=== PATIENT | female | born 1970 | race Caucasian/White ===

== ENCOUNTER → 2017-07-11 | Day surgery (SDC) | payer OTHER ==
[2017-07-07 12:29] VITALS: Ht 162.6 cm; Wt 100.5 kg
[~2017-07-11] VITALS: Ht 162.6 cm; Wt 100.5 kg
[~2017-07-11] MED LIST: 500ML BSSPLUS 0.5ML EPI1:1000 IRRIG ONE; ACET-1311 PO; ACETAMINOPHEN 325 MG TAB PO PRN; ASPI81TA28 PO; ATOR-26 PO; ATROPINE SULFATE 0.1 MG/ML 5ML SYR IV PRN; BSS FLUSH ONE; BUPIVACAINE HCL 0.75% 10 ML AMP/VIAL ONE; CEFAZOLIN SOD 1 GM VIAL ONE; CHOL2000 PO; CLOP1TAB15 PO; DEXAMETHASONE SOD INJ 4 MG/ML VIAL ONE; EPP3/2 IM; EpHEDrine SULFATE INJ 50 MG/ML AMP IV PRN; EpINEphrine INJ 1MG/ML AMP 1 MG/ML AMP ONE; FENTANYL CITRATE INJ 50 MCG/1 ML 2 ML VIAL IV PRN; FENTANYL CITRATE INJ 50 MCG/1 ML 2 ML VIAL ONE; FLUO20CA35 PO; FLUT50SP45; FRS/40 PO; HYALURONIDASE HUMAN 150 UNIT/ML INJ ONE; INDOCYANINE GREEN 25 MG/10 ML ONE; INSDGI SC; INSULIN HUMAN REGULAR PER UNIT 6 UNITS in SYRINGE 0 ML IV STA; IPRA1AER2 INH; ISOS60TA25 PO; LABETALOL HCL IV 5 MG/ML 20ML ONE; LACTATED RINGER'S 1000ML 500 ML IV SCH; LIDOCAINE HCL 2% 2 ML VIAL (20MG/ML) ONE; LIDOCAINE MPF 4% INJ ONE; LISI20TA3 PO; METO50TA16 PO; MIDAZOLAM HCL 1 MG/ML 2ML VIAL ONE; NEOMYCIN/POLYMYX/DEXAMETH OP OINT PER APP CHARGE ONE; NTRGSL/4 UT; NVLGI/PEN SQ; NovoLIN-R INSULIN PER UNIT CHARGE ONE; OCUCOAT 1 ML SOLN IO ONE; ONDA4TAB46 PO; ONDANSETRON INJ 2 MG/ML 2 ML VIAL IV PRN; PHENYLEPHRINE HCL 10% OP SOLN PER DROP CHARGE ONE; POLY335019 PO; POVIDONE-IODINE OP SOLN (SURGERY CNTR CHARGING ONLY) ONE; PROPARACAINE 0.5% OP SOLN PER DROP CHARGE OPL SCH; PROPOFOL IV EMULSION 10 MG/ML 20 ML VIAL ONE; RANI150T3 PO; TIMOLOL MALEATE 0.5% OP SOLN PER DROP CHARGE ONE; VANCOMYCIN HCL 1000MG/20ML VIAL ONE
--- NOTE | 2017-07-11 07:50 | History & Physical Bridge - [place] ---
H&P Re-Evaluation Bridge Note: Pt has diabetic retinopathy left eye and is having vitrectomy left eye. I have examined the patient, reviewed the History & Physical and in the interval since the performance of the History & Physical I have noted the following changes of clinical significance: No changes noted
[2017-07-11] MEDS: PHENYLEPHRINE HCL 2.5% OP SOLN PER DROP CHARGE OPL SCH ×2 (07:59→08:05)
[2017-07-11] MEDS: TROPICAMIDE 1% OP SOLN PER DROP CHARGE OPL SCH ×2 (08:00→08:05)
[2017-07-11 08:37] LABS: CALCIUM 8.6 mg/dl (8.5-10.1); CREATININE 0.93 mg/dl (0.60-1.20); POTASSIUM 4.2 mmol/L (3.5-5.1)
[2017-07-11] MEDS: ATROPINE SULFATE 1% OP SOLN 2 ML BTL ONE ×2 (10:14→10:16)
[2017-07-11] MEDS: ATROPINE SULFATE 1% OP OINT PER APPLICATION CHARGE ONE ×2 (10:14→10:15)
--- NOTE | 2017-07-11 10:17 | [facility] Post Operative Brief Note ---
Immediate Operative Summary Operative Date Jul 11, 2017. Pre-Operative Diagnosis Left Eye Diabetic Retinopathy Post-Operative Diagnosis Same Procedure(s) Performed Left Eye 23 Gauge Vitrectomy with Laser Surgeon Dr. Bentley Senior Research Project Manager Surgeon(s) None Estimated Blood Loss 0 Findings Consistent with Post-Op Diagnosis Specimens None Anesthesia Type MAC
--- NOTE | 2017-07-11 10:18 | Discharge Instructions-SurgCtr ---
Discharge Instructions Date of Service Jul 11, 2017. Visit Reason for Visit: Left Eye Diabetic Retinopathy Discharge Discharge Diagnosis / Problem: same Discharge Goals Goal(s): Improve function Activity Recommendations Activity Limitations: per Instructions/Follow-up section Anesthesia . Post Anesthesia Instructions: If you have had General Anesthesia or IV Sedation: * Do not drive today. * Resume driving when surgeon permits. * Do not make important decisions or sign legal documents today. * Call surgeon for: 1. Temperature elevations greater than 101 degrees F. 2. Uncontrollable pain. 3. Excessive bleeding. 4. Persistent nausea and vomiting. 5. Medication intolerance (nausea, vomiting or rash). * For nausea and vomiting use only clear liquids such as: tea, soda, bouillon until nausea subsides, then gradually increase diet as tolerated. * If you have any concerns or questions, call your surgeon's office. If physician is unavailable and it is an emergency, call 911 or go to the nearest emergency room. . Instructions / Follow-Up Instructions / Follow-Up * May take Tylenol if needed for discomfort. * Do NOT remove eye shield. * NO straining, heavy lifting (>15 pounds) or bending below waist. * Avoid getting water or soap directly into operative eye. * Do NOT rub eye. If you experience increasing eye pain not relieved by medication, please contact us immediately at [phone]. If you are unable to reach someone at the above number, call [phone] and ask to speak with the EYE DOCTOR COMMUNITY HEALTH COUNSELOR. Inform them that you are a Dr. Bentley patient who had recent surgery. Diet Recommendations Home Diet: resume previous diet Procedures Procedures Performed: Left Eye 23 Gauge Vitrectomy with Laser Pending Studies Studies pending at discharge: no Medical Emergencies . Who to Call and When: Medical Emergencies: If at any time you feel your situation is an emergency, please call 911 immediately. . Non-Emergent Contact Non-Emergency issues call your: Maritime Engineer . . "Provider Documentation" section prepared by Demetrio Bentley. .
[2017-07-11 10:23] VITALS: TEMP 36.5
--- NOTE | 2017-07-11 10:24 | [facility] Operative Report ---
Operative Report Date of Service Jul 11, 2017. Operative Report PREOPERATIVE DIAGNOSIS: Diabetic retinopathy with vitreous hemorrhage, epiretinal membrane and tractional retinal detachment, left eye. POSTOPERATIVE DIAGNOSIS: same. PROCEDURE: 1. Pars plana vitrectomy, 23 gauge. 2. Membrane peeling. 3. Endolaser. All to the left eye. CPT CODE: 57777 SURGEON: Demetrio Bentley D.O. COMPLICATIONS: None. ESTIMATED BLOOD LOSS: None. SPECIMENS: None. ANESTHESIA: Retrobulbar block and MAC INDICATIONS FOR PROCEDURE: Surgery is indicated to decrease risk of vision loss and potentially improve vision. CONSENT: The risks, benefits and alternatives were discussed with the patient including but not limited to decreased visual acuity, failure to achieve desired results, loss of the eye, infection, pain, glaucoma, lens changes, retinal tears, retinal detachment, the need for more procedures, drooping of the eyelid, blindness, and double vision. The patient is aware of risks and consents to the surgery. Consent is signed and on the chart. OPERATION AND FINDINGS: The patient was brought to the operating room where the patient was identified by name, date, and medical record number. The surgical site was confirmed with the informed written consent. The patient was sedated by the anesthesiology team after which a 50:50 mixture of 2% lidocaine and 0.75% bupivacaine with hyaluronidase was administered in a standard retrobulbar fashion. A total of 4 ml was administered without difficulty. The patient was then prepped and draped in the usual sterile manner for retinal surgery. Lidocaine 4% was injected subTenon's superior nasally and inferior nasally for a total of 4ml due to the patient still having discomfort after the retrobulbar block. A wire lid speculum was placed and an Heath 23-gauge trocar cannula system was employed. The inferior temporal trocar cannula was first placed in an angled fashion 3.75mm posterior to the surgical limbus and the infusion cannula was inserted into this cannula after which the intravitreal position was verified prior to turning the infusion on. Two more trocar cannulas were then inserted in an angled fashion, one in the superior temporal, and one in the superior nasal quadrant both 3.75mm posterior to the surgical limbus. A light pipe and vitrector were then introduced into the eye and the BIOM wide angle viewing system was brought into place. Posterior inspection revealed partially regressed proliferative diabetic retinopathy with neovascularization tags superior and inferior to the temporal arcades. There was also noted well placed previous partial laser treatment. Standard core vitrectomy was performed and the tractional detachments along the superior and inferior arcades were segmented. The vitreous was insured to be totally detached from the posterior pole with the aid of the vitrector. the areas of regressed neovascularization were segmented with the vitrector. Endolaser was used to perform fill-in steward retinal photocoagulation. Next 0.05ml of indocyanine green was placed over the macular surface to stain the internal limiting membrane and reverse stain the overlying epiretinal membrane. This was washed from the eye after 20 seconds. At this point a flat contact lens was placed on the surface of the eye and a flex loop and ILM forceps were used to gently peel the internal limiting membrane and overlying epiretinal membrane off of the macular surface without difficulty. At this point scleral depression was performed for 360 degrees and no retinal tears or detachments were noted. The trocar cannulas were then removed and found to be water tight. The intraocular pressure was found to be within normal limits by palpation and subconjunctival injections of vancomycin and dexamethasone were administered inferiorly and superiorly. The wire lid speculum was removed. Maxitrol and Atropine ointments were applied to the surface of the eye. A light patch and shield were taped over the surface of the eye and the patient left the Operating Room in stable condition having tolerated the procedure well. DISPOSITION: The patient has an appointment the following morning in the Ophthalmology Clinic. The patient is to call immediately if there are any problems overnight. I attest to the content of the Intraoperative Record and any orders documented therein. Any exceptions are noted below.
[2017-07-11 11:00] VITALS: BP 153/75; PULSE 84; O2SAT 96
--- NOTE | 2017-07-11 11:14 | Anesthesia Progress Nt - [facility] ---
Anesthesia Post Op Note Date & Time Jul 11, 2017 at 11:04 Vital Signs Pain Intensity: 0 Vital Signs Past 12 Hours Date Time Temp Pulse Resp B/P (MAP) Pulse Ox O2 Delivery O2 Flow Rate FiO2 07/11/17 11:00 84 20 153/75 (101) 96 Room Air 07/11/17 10:23 36.5 78 20 154/88 (110) 98 Room Air 07/11/17 07:22 37.2 88 20 154/94 (114) 97 Room Air Notes Mental Status: alert / awake / arousable, participated in evaluation Nausea / Vomiting: adequately controlled Pain: adequately controlled Airway Patency, RR, SpO2: stable & adequate BP & HR: stable & adequate Hydration State: stable & adequate Anesthetic Complications: no major complications apparent Anesthetic Complications: Preoperatively, the patient's port was accessed by nursing due to a history of difficult IV access. The nurse was not able to draw blood from the port, but patient stated that this happens sometimes. On arrival to the OR, the patient experienced pain with injection of 40 mg of propofol. The tissue above the aport was tender, slightly firm and mildly blanched. Therefore, the aport need was removed. Speaking to the nurse who did both the placement and the removal, she did not believe the port itself was ever actually accessed. I placed a 22 G IV in the patient's foot for the case. At the end of case, the patient's chest tissue over the aport was no long tender, tissue was soft, and skin color was normal. Discussed with patient whether she wanted us to try to reaccess her port to place a heparin dwell in the slim possibility the port had been accessed prior to surgery and the needle had become dislodged, but patient refused. The patient was instructed to call us if the tissue became tender, red , or if there was any evidence of skin breakdown. The patient was also aware that she was given insulin prior to surgery and instructed to monitor her blood sugar for the rest of the day. (BG in PACU was 275 - down from 365 preop). Otherwise patient was ok for discharge.
== END | disposition home or self-care (01) ==
LOC: X.SURG 07:00
PROVIDERS: ATTEND Ophthalmology
DX: E11.319 Type 2 diabetes mellitus with unspecified diabetic retinopathy without macular edema (principal); K21.9 Gastro-esophageal reflux disease without esophagitis; J44.9 Chronic obstructive pulmonary disease, unspecified; G47.33 Obstructive sleep apnea (adult) (pediatric); I25.10 Atherosclerotic heart disease of native coronary artery without angina pectoris; Z86.73 Personal history of transient ischemic attack (TIA), and cerebral infarction without residual deficits; Z95.1 Presence of aortocoronary bypass graft; Z91.040 Latex allergy status; Z79.4 Long term (current) use of insulin; Z87.891 Personal history of nicotine dependence; Z88.0 Allergy status to penicillin; Z88.5 Allergy status to narcotic agent; Z80.3 Family history of malignant neoplasm of breast; Z82.49 Family history of ischemic heart disease and other diseases of the circulatory system

== ENCOUNTER → 2017-09-30 | Outpatient (CLI) | payer OTHER ==
[~2017-09-30] MED LIST changes: -500ML BSSPLUS 0.5ML EPI1:1000 IRRIG ONE; -ACETAMINOPHEN 325 MG TAB PO PRN; -ATROPINE SULFATE 0.1 MG/ML 5ML SYR IV PRN; -BSS FLUSH ONE; -BUPIVACAINE HCL 0.75% 10 ML AMP/VIAL ONE; -CEFAZOLIN SOD 1 GM VIAL ONE; -DEXAMETHASONE SOD INJ 4 MG/ML VIAL ONE; -EpHEDrine SULFATE INJ 50 MG/ML AMP IV PRN; -EpINEphrine INJ 1MG/ML AMP 1 MG/ML AMP ONE; -FENTANYL CITRATE INJ 50 MCG/1 ML 2 ML VIAL IV PRN; -FENTANYL CITRATE INJ 50 MCG/1 ML 2 ML VIAL ONE; -HYALURONIDASE HUMAN 150 UNIT/ML INJ ONE; -INDOCYANINE GREEN 25 MG/10 ML ONE; -INSULIN HUMAN REGULAR PER UNIT 6 UNITS in SYRINGE 0 ML IV STA; -LABETALOL HCL IV 5 MG/ML 20ML ONE; -LACTATED RINGER'S 1000ML 500 ML IV SCH; -LIDOCAINE HCL 2% 2 ML VIAL (20MG/ML) ONE; -LIDOCAINE MPF 4% INJ ONE; -MIDAZOLAM HCL 1 MG/ML 2ML VIAL ONE; -NEOMYCIN/POLYMYX/DEXAMETH OP OINT PER APP CHARGE ONE; -NovoLIN-R INSULIN PER UNIT CHARGE ONE; -OCUCOAT 1 ML SOLN IO ONE; -ONDANSETRON INJ 2 MG/ML 2 ML VIAL IV PRN; -PHENYLEPHRINE HCL 10% OP SOLN PER DROP CHARGE ONE; -POVIDONE-IODINE OP SOLN (SURGERY CNTR CHARGING ONLY) ONE; -PROPARACAINE 0.5% OP SOLN PER DROP CHARGE OPL SCH; -PROPOFOL IV EMULSION 10 MG/ML 20 ML VIAL ONE; -TIMOLOL MALEATE 0.5% OP SOLN PER DROP CHARGE ONE; -VANCOMYCIN HCL 1000MG/20ML VIAL ONE
[2017-09-30 17:41] LABS: BASO % 0.9 %; BASO ABS # 0.04 K/uL (0-0.2); EOS % 3.2 %; EOS ABS # 0.15 K/uL (0-0.5); HEMATOCRIT 36.1 % (37-47); HEMOGLOBIN 11.9 g/dL (12.0-16.0); IG# 0.01 K/uL (0.00-0.02); LYMPH % 44.9 %; LYMPH ABS # 2.08 K/uL (1.2-3.4); MEAN CELL VOLUME 86.8 fL (80-100); MEAN CORPUSCULAR HEMOGLOBIN 28.6 pg (25-34); MEAN PLATELET VOLUME 11.6 fL (7.4-10.4); MONO % 6.3 %; MONO ABS # 0.29 K/uL (0.11-0.59); NEUT % 44.5 %; NEUT ABS # 2.06 K/uL (1.4-6.5); PLATELET COUNT 256 K/uL (130-400); RED CELL DISTRIBUTION WIDTH CV 13.3 % (11.5-14.5); WHITE BLOOD COUNT 4.63 K/uL (4.8-10.8)
[2017-09-30 18:17] LABS: ALKALINE PHOSPHATASE 146 U/L (45-117); ALT/SGPT 38 U/L (12-78); AST/SGOT 24 U/L (15-37); BLOOD UREA NITROGEN 27 mg/dl (7-18); CALCIUM 8.8 mg/dl (8.5-10.1); CARBON DIOXIDE 24 mmol/L (21-32); CHOLESTEROL 141 mg/dl (0-200); CREATININE 0.98 mg/dl (0.60-1.20); GLUCOSE 132 mg/dl (70-99); LDL CHOLESTEROL CALCULATED 43 mg/dl; POTASSIUM 4.3 mmol/L (3.5-5.1); SODIUM 140 mmol/L (136-145); TOTAL PROTEIN 7.3 gm/dl (6.4-8.2)
[2017-09-30 18:30] LABS: CREATININE RANDOM URINE 96.4 mg/dl
[2017-10-01 06:28] LABS: HEMOGLOBIN A1C 15.8 % (4.5-5.6)
== END | disposition home or self-care (01) ==
LOC: C.LABMFLN 12:20
PROVIDERS: ATTEND Physician Assistant
DX: E10.9 Type 1 diabetes mellitus without complications (principal); I10 Essential (primary) hypertension; E78.5 Hyperlipidemia, unspecified; J44.9 Chronic obstructive pulmonary disease, unspecified; R12 Heartburn

== ENCOUNTER → 2017-10-11 | Outpatient (CLI) | payer OTHER | END | disposition home or self-care (01) | LOC: C.LABMFLN 15:12 | PROVIDERS: ATTEND Family Medicine | DX: L02.411 Cutaneous abscess of right axilla (principal) ==